=== PATIENT | male | born 1935 | race Caucasian/White ===

== ENCOUNTER → 2019-07-06 | Day surgery (SDC) | payer OTHER ==
[~2019-07-06] VITALS: Ht 180.3 cm; Wt 94.8 kg
[~2019-07-06] MED LIST: CEPHALEXIN500 M1 PO; DELTASONE20 M1 PO; FLOMAX0.4 MG PO; LISINOPRIL AND1 TA1; LISINOPRIL10 M1 PO; PERCOCET 325 MG1 TA2 PO; SIMVASTATIN40 MG; SINGULAIR10 M1 PO; SPIRIVA18 MCG; SYMBICORT; SYNTHROID,LEVO50 MCG; TERAZOSIN HCL5 M1; ZOFRAN ODT4 MG SL
[2019-07-06 07:30] VITALS: BP 111/69
[2019-07-06 09:06] VITALS: BP 120/60
[2019-07-06 09:19] VITALS: BP 125/61
[2019-07-06 09:29] VITALS: BP 133/58
[2019-07-06 11:57] LABS: BF LYMPHOCYTES 8 %; BF MACROPHAGES 82 %; BF NEUTROPHILS 10 %
[2019-07-07 16:11] LABS: ACID FAST SPEC PROCESSING Concentration (.)
== END | disposition home or self-care (01) ==
LOC: SDC 07-04 10:15
PROVIDERS: Internal Medicine Critical Care Medicine
DX: R91.8 Other nonspecific abnormal finding of lung field (principal); I10 Essential (primary) hypertension; J43.9 Emphysema, unspecified; F32.9 Major depressive disorder, single episode, unspecified; J96.11 Chronic respiratory failure with hypoxia; Z99.81 Dependence on supplemental oxygen; Z87.891 Personal history of nicotine dependence; Z82.3 Family history of stroke